=== PATIENT | female | born 1955 | race Caucasian/White ===

== ENCOUNTER 2017-02-01 17:42 | Emergency (ER) | payer OTHER ==
[2017-02-01 17:47] VITALS: TEMP 97.9
--- NOTE | 2017-02-01 18:14 | CPEKG ---
Heart Rate: 66 RR Interval: 909 P-R Interval: 180 QRSD Interval: 94 QT Interval: 424 QTC Interval: 445 P Lipan: 76 QRS Lipan: 64 T Wave Lipan: 68 EKG Severity - NORMAL ECG - EKG Impression: SINUS RHYTHM Electronically Signed By: Demetra Cheatham 01-Feb-2017 22:05:20
--- NOTE | 2017-02-01 18:22 | EDPHY ---
H & P Stated Complaint: high BP; feels shakey, very anxious Time Seen by Provider: 02/01/17 17:45 HPI/ROS: CHIEF COMPLAINT: Hypertension HISTORY OF PRESENT ILLNESS: The patient is a 61 y/o female arriving with her family member arriving for evaluation of hypertension. She saw a new PCP for an annual exam on 01/17, 2 weeks ago, and was diagnosed with hypertension at that visit. She was prescribed Prinvide and has been measuring her BP daily. Two days ago, her BP was 177/116 and contacted her PCP, who directed her to double her antihypertensive dose. The patient took 1.5 of a dose yesterday and measured her BP at 106 systolic. Today she measured her BP at grocery store and saw her BP was elevated again, systolic pressure over 200, so she decided to take a 2nd dose of Prinvide around 16:30, almost 2 hours ago. She denies any symptoms during this time including headache, chest pain, dizziness, near- syncope, vision changes, weakness, or paresthesias. REVIEW OF SYSTEMS: Constitutional: No fever, no chills Eyes: No visual changes ENT: No sore throat Respiratory: No cough, no shortness of breath Cardiac: No chest pain Gastrointestinal: No nausea, no vomiting, no abdominal pain Genitourinary: No hematuria, no dysuria Musculoskeletal: No leg pain or swelling Skin: No rash Neurological: No headache, no numbness, no weakness Psychiatric: No depression - Personal History Current Tetanus Diphtheria and Acellular Pertussis (TDAP): Yes - Medical/Surgical History PMH: PMH includes: 1. Hypertension - diagnosed 01/17/17, lisinopril and HCTZ 2. Hypothyroidism Other PMH: HTN. hypothyroid - Social History Smoking Status: Never smoked Additional Social History: She moved to [place] September 2016. Family member at bedside. Has stressful job in education. PCP: Dr. Don - Physical Exam Exam: General Appearance: Alert, no distress, BP 214/91 Eyes: Pupils equal and round, no conjunctival pallor or injection ENT, Mouth: Mucous membranes moist Neck: Normal inspection Respiratory: Lungs are clear to auscultation Cardiovascular: Regular rate and rhythm Gastrointestinal: Abdomen is soft and non- tender Neurological: A&O, nonfocal, normal gait Skin: Warm and dry, no rash Extremities: Nontender, no pedal edema Psychiatric: Mood and affect normal Constitutional: Initial Vital Signs Temperature (C) 36.6 C 02/01/17 17:43 Heart Rate 75 02/01/17 17:43 Respiratory Rate 18 02/01/17 17:43 Blood Pressure 224/96 H 02/01/17 17:43 O2 Sat (%) 98 02/01/17 17:43 O2 Delivery Mode Room Air Allergies/Adverse Reactions: No Known Allergies Allergy (Unverified 02/01/17 17:47) Home Medications: Medication Instructions Recorded Levothyroxine [Synthroid 88 mcg 88 mcg PO DAILY06 02/01/17 (*)] Lisinopril/Hctz 10/12.5 mg 1 ea PO 02/01/17 [Zestoretic/Prinzide 10/12.5MG (*)] amLODIPine BESYLATE/BENAZEPRIL 1 each PO DAILY #30 cap 02/01/17 [Lotrel 5/10 mg Cap (*)] Medical Decision Making - Diagnostics EKG Interpretation: EKG interpreted by me reveals normal sinus rhythm, rate 66, no ST or T segment changes. Interpretation: Normal EKG ED Course/Re-evaluation: This is a 61 y/o female with a recent diagnosis of hypertension who arrives for evaluation of asymptomatic elevated blood pressure. She had a relatively low BP after taking 1.5 dose of her medications yesterday around 106 systolic. She took the 2nd dose of prinzide about 2 hours ago. Upon arrival in triage her BP is 224/96. Her exam is unremarkable. Given that she recently took a second dose of BP med, I will observe her for now. Her BP has dropped to 186/99 in about 40 minutes. Plan for IV, labs, EKG, and continuous monitoring to ensure her BP stabilizes while here. The 12 lead EKG was interpreted by myself. Sinus mechanism. Rate 66. See hard copy and/or "tracemaster" electronic copy for interpretation. 1854: Reevaluated patient. Her BP is 170/89. She continues to be asymptomatic. She is hyponatremic at 121, which is a significant drop from her last Na of 144 2 weeks ago. This is likely related to her HCTZ. I've advised her to discontinue the Prinzide. Plan to consult her PCP to determine what is the best medication to replace this with. 1999: Consulted with Dr. Don, patient's PCP. Patient will be discharged on Lotrel in lieu of her Prinzide. She will follow up with her PCP tomorrow. Return precautions discussed. She agrees with discharge plan. Differential Diagnosis: Differential diagnosis includes does not limited to acute coronary syndrome, renal insufficiency, intracranial hemorrhage, hypertensive emergency. - Data Points Laboratory Results: Laboratory Results 02/01/17 18:30 02/01/17 18:30 02/01/17 02/01/17 18:30 18:30 WBC 10.86 10^3/uL H 10^3/uL (3.80-9.50) RBC 4.73 10^6/uL 10^6/uL (4.18-5.33) Hgb 13.8 g/dL g/dL (12.6-16.3) Hct 37.2 % L % (38.0-47.0) MCV 78.6 fL L fL (81.5-99.8) MCH 29.2 pg pg (27.9-34.1) MCHC 37.1 g/dL H g/dL (32.4-36.7) RDW 11.9 % % (11.5-15.2) Plt Count 107 10^3/uL L 10^3/uL (150-400) MPV 10.8 fL fL (8.7-11.7) Neut % (Auto) 63.7 % % (39.3-74.2) Lymph % (Auto) 26.3 % % (15.0-45.0) Stark % (Auto) 7.5 % % (4.5-13.0) Eos % (Auto) 1.3 % % (0.6-7.6) Baso % (Auto) 0.6 % % (0.3-1.7) Nucleat RBC Rel Count 0.0 % % (0.0-0.2) Absolute Neuts (auto) 6.93 10^3/uL H 10^3/uL (1.70-6.50) Absolute Lymphs (auto) 2.86 10^3/uL 10^3/uL (1.00-3.00) Absolute Monos (auto) 0.81 10^3/uL H 10^3/uL (0.30-0.80) Absolute Eos (auto) 0.14 10^3/uL 10^3/uL (0.03-0.40) Absolute Basos (auto) 0.06 10^3/uL 10^3/uL (0.02-0.10) Absolute Nucleated RBC 0.00 10^3/uL 10^3/uL (0-0.01) Immature Gran % 0.6 % % (0.0-1.1) Immature Gran # 0.06 10^3/uL 10^3/uL (0.00-0.10) Sodium 121 mEq/L L mEq/L (134-144) Potassium 3.6 mEq/L mEq/L (3.5-5.2) Chloride 85 mEq/L L mEq/L (97-110) Carbon Dioxide 25 mEq/l mEq/l (22-31) Anion Gap 11 mEq/L mEq/L (8-16) BUN 14 mg/dL mg/dL (7-23) Creatinine 0.9 mg/dL mg/dL (0.6-1.0) Estimated GFR > 60 Glucose 89 mg/dL mg/dL (70-100) Calcium 9.2 mg/dL mg/dL (8.5-10.4) Medications Given: Discontinued Medications Amlodipine/Benazepril HCl (Lotrel 5-10 Mg Capsule) 1 each PO EDNOW ONE Stop: 02/01/17 20:16 Last Admin: 02/01/17 20:18 Dose: 1 each Departure - Departure Disposition: Home, Routine, Self-Care Clinical Impression: Hyponatremia Hypertension Qualifiers: Hypertension type: essential hypertension Qualified Code(s): I10 - Essential ( primary) hypertension Condition: Good Instructions: Amlodipine/Benazepril (By mouth), Hyponatremia (ED), Hypertension (ED) Additional Instructions: 1. Stop taking your Prinzide. 2. Start taking Lotrel as prescribed tomorrow. 3. Follow up with your primary care provider tomorrow without fail. Keep a blood pressure chart (take one measurement in the morning and one in the evening ) and bring that with you to your next PCP visit. 4. Return to the ED for chest pain, shortness of breath, severe headache, vision changes, weakness, numbness, or other worsening of condition. Referrals: Dara Don MD [Primary Care Provider] - As per Instructions Prescriptions: amLODIPine BESYLATE/BENAZEPRIL [Lotrel 5/10 mg Cap (*)] 1 each PO DAILY #30 cap Report Scribed for: Demetra Cheatham Report Scribed by: Maylin Loving Date of Report: 02/01/17 Time of Report: 18:07 Physician Review and Approval Statement: 02/01/17 18:07 Portions of this note were transcribed by a anesthesiology medical doctor. I personally performed a history, physical exam, medical decision making, and confirmed accuracy of information the transcribed note.
[2017-02-01 18:34] LABS: % IMMATURE GRANULYOCYTES 0.6 % (0.0-1.1); ABSOLUTE IMMATURE GRANULOCYTES 0.06 10^3/uL (0.00-0.10); ADD DIFF? NO; ADD MORPH? NO; ADD SCAN? NO; ATYPICAL LYMPHOCYTE FLAG 10 (0-99); FRAGMENT RBC FLAG 0 (0-99); HEMATOCRIT 37.2 % (38.0-47.0); HEMOGLOBIN 13.8 g/dL (12.6-16.3); LEFT SHIFT FLG 0 (0-99); LIPEMIA HEMOLYSIS FLAG 90 (0-99); MEAN CELL HEMOGLOBIN 29.2 pg (27.9-34.1); MEAN CELL HEMOGLOBIN CONCENTR. 37.1 g/dL (32.4-36.7); MEAN CELL VOLUME 78.6 fL (81.5-99.8); MEAN PLATELET VOLUME 10.8 fL (8.7-11.7); PLATELET CLUMPS FLAG 0 (0-99); PLATELET COUNT 107 10^3/uL (150-400); RED BLOOD CELL COUNT 4.73 10^6/uL (4.18-5.33); RED CELL DISTRIBUTION WIDTH 11.9 % (11.5-15.2)
[2017-02-01 18:46] LABS: ANION GAP 11 mEq/L (8-16); CALCIUM 9.2 mg/dL (8.5-10.4); CARBON DIOXIDE 25 mEq/l (22-31); CHLORIDE 85 mEq/L (97-110); CREATININE 0.9 mg/dL (0.6-1.0); GLOMERULAR FILTRATION RATE > 60; GLUCOSE 89 mg/dL (70-100); POTASSIUM 3.6 mEq/L (3.5-5.2); SODIUM 121 mEq/L (134-144)
[2017-02-01] MEDS ORDERED: AMLODIPINE BESYLATE 5/BENAZEPRIL 10MG 1 EACH CAP PO SCH (20:15)
[2017-02-01] MEDS ORDERED: AMLODIPINE BESYLATE 5/BENAZEPRIL 10MG 1 EACH CAP PO ONE (20:15)
[2017-02-01 20:23] VITALS: BP 156/82; PULSE 64; RESP 16; O2SAT 96
== END 2017-02-01 20:23 | disposition home or self-care (01) ==
DX: I10 Essential (primary) hypertension (principal); E87.1 Hypo-osmolality and hyponatremia